=== PATIENT | male | born 1960 | race Caucasian/White ===

== ENCOUNTER 2017-03-08 17:07 | Emergency (ER) | payer OTHER ==
[~2017-03-08] VITALS: Ht 185.4 cm; Wt 136.4 kg
[2017-03-08] MEDS ORDERED: FLECAINIDE ACET50 MG PO (17:17)
[2017-03-08] MEDS ORDERED: METOPROLOL SUCC50 M1 PO (17:17)
[2017-03-08 18:05] LABS: BASO # 0.1 (0.02-0.10); EOS # 0.1 (0.04-0.40); EOS % 1.1 % (0.0-4.0); HEMATOCRIT 46.3 % (42.0-52.0); HEMOGLOBIN 15.8 g/dL (13.5-18.0); LYMPH# 2.6 (1.50-4.00); MEAN CELL VOLUME 93 fl (78-100); MEAN CORPUSCULAR HEMOGLOBIN 32 pg (27-31); MEAN CORPUSCULAR HGB CONC 34 g/dL (33-37); MEAN PLATELET VOLUME 9.4 fl (7.4-10.4); MONO # 1.1 (0.20-0.80); NEU # 8.7 (1.40-6.50); PLATELET COUNT 273 K/mm3 (130-400); RED BLOOD COUNT 4.99 M/mm3 (4.20-5.60); RED CELL DISTRIBUTION WIDTH 12.8 % (11.5-14.5); WHITE BLOOD COUNT 12.6 K/mm3 (4.8-10.8)
[2017-03-08 18:18] LABS: ALBUMIN 4.3 g/dL (3.5-5.0); BUN/CREATININE RATIO 19.6 (6.0-26.0); CALCIUM 9.3 mg/dL (8.4-10.2); POTASSIUM 4.3 mmol/L (3.6-5.0); TOTAL BILIRUBIN 0.7 mg/dL (0.2-1.3); TOTAL PROTEIN 8.3 g/dL (6.3-8.2)
[2017-03-08 18:28] LABS: TROPONIN-I < 0.03 ng/mL (0.00-0.06)
[2017-03-08 18:48] VITALS: BP 13/64
== END 2017-03-08 18:47 | disposition home or self-care (01) ==
LOC: ED 17:07
PROVIDERS: Nurse Practitioner
DX: S63.502A Unspecified sprain of left wrist, initial encounter (principal); R55 Syncope and collapse; W00.0XXA Fall on same level due to ice and snow, initial encounter; I48.91 Unspecified atrial fibrillation; Z88.0 Allergy status to penicillin

== ENCOUNTER → 2019-03-26 | Day surgery (SDC) | payer BC ==
[~2019-03-26] MED LIST: FLECAINIDE ACET50 MG PO; METOPROLOL SUCC50 M1 PO
== END ==
LOC: MSO 07:08
DX: D12.4 Benign neoplasm of descending colon (principal); Z88.0 Allergy status to penicillin; Z79.82 Long term (current) use of aspirin; Z79.899 Other long term (current) drug therapy; I48.91 Unspecified atrial fibrillation; G47.33 Obstructive sleep apnea (adult) (pediatric)
CPT/HCPCS: 00811; J2704; J3010; J7120

== ENCOUNTER → 2021-04-10 | Outpatient (CLI) | payer BC | LOC: RAD 08:00 | DX: E04.1 Nontoxic single thyroid nodule (principal); K76.0 Fatty (change of) liver, not elsewhere classified; R74.8 Abnormal levels of other serum enzymes ==